=== PATIENT | male | born 1970 | race Caucasian/White ===

== ENCOUNTER 2024-06-14 09:48 | Inpatient (IN) | payer BC ==
[2024-06-14] VITALS (7 sets, daily range): BP systolic 132–145; BP diastolic 76–78; PULSE 73–82; RESP 18–19; TEMP 98.6–100.9; O2SAT 100
[~2024-06-14] VITALS: Ht 193 cm; Wt 118.8 kg
[2024-06-14] MEDS ORDERED: METFORMIN HCL500 MG PO (10:25)
[2024-06-14 10:43] LABS: BASOPHILS % 0.5 % (0.0-1.0); EOSINOPHILS % 0.2 % (0.0-6.0); HEMOGLOBIN 14.6 g/dL (14.0-18.0); LYMPHOCYTES # (AUTO) 0.8 (1.0-3.2); LYMPHOCYTES % 12.2 % (18.0-39.1); MEAN CORPUSCULAR HEMOGLOBIN 30.7 pg (28-32); MEAN CORPUSCULAR HGB CONC 33.2 g/dL (31-35); MEAN CORPUSCULAR VOLUME 92.4 fL (81-99); MONOCYTES # (AUTO) 0.6 (0.2-0.8); MONOCYTES % 9.9 % (4.4-11.3); NEUTROPHILS # (AUTO) 4.9 (2.1-6.9); NEUTROPHILS % 76.9 % (38.7-80.0); PLATELET COUNT 233 x10e3/uL (140-360); RED BLOOD COUNT 4.76 x10e6/uL (4.3-5.7); WHITE BLOOD COUNT 6.38 x10e3/uL (4.8-10.8)
[2024-06-14] MEDS: SODIUM CHLORIDE 0.9% 1000ML 1,000 ML IV STA (10:56)
[2024-06-14 10:58] LABS: INR 1.07; PROTHROMBIN TIME 14.5 seconds (11.9-14.5)
[2024-06-14 10:59] LABS: PARTIAL THROMBOPLASTIN TIME 26.2 seconds (23.8-35.5)
[2024-06-14 11:10] LABS: ALBUMIN 3.8 g/dL (3.5-5.0); ALBUMIN/GLOBULIN RATIO 1.1 (0.8-2.0); ANION GAP 16.8 mmol/L (8-16); BILIRUBIN,TOTAL 0.7 mg/dL (0.2-1.2); CALCIUM 9.7 mg/dL (8.4-10.2); CREATININE, SERUM 0.95 mg/dL (0.72-1.25); MAGNESIUM 1.9 MG/DL (1.3-2.1); POTASSIUM 3.8 mmol/L (3.5-5.1); TOTAL PROTEIN 7.4 g/dL (6.5-8.1)
[2024-06-14 11:15] LABS: TROPONIN I 0.006 ng/mL (0-0.300)
[2024-06-14] MEDS ORDERED: DEXTROSE 50% SYRINGE 50 ML IV PRN (11:15)
[2024-06-14] MEDS ORDERED: ONDANSETRON HCL INJ 2MG/ML 2ML 2 MG/ML VIAL IV PRN (11:15)
[2024-06-14] MEDS ORDERED: Morphine 4mg INJECTION 4 MG/ML INJ IV PRN (11:15)
[2024-06-14] MEDS: INSULIN LISPRO 100 UNIT/1 ML 3ML VIAL SQ SCH (11:30)
[2024-06-14] MEDS ORDERED: COLLAGENASE 5 GM TUBE TOP PRN (14:30)
[2024-06-14] MEDS: SODIUM CHLORIDE 0.9% 1000ML 1,000 ML IV SCH (15:57)
[2024-06-14] MEDS: VANCOMYCIN 1.25GM/250 ML (PEG) 250 ML IV ONE (15:58)
[2024-06-14 17:15] LABS: TROPONIN I 0.005 ng/mL (0-0.300)
[2024-06-14] MEDS: ZOLPIDEM TARTRATE 10 MG TAB PO PRN (21:31)
[2024-06-15] VITALS: BP 122/76; PULSE 66; RESP 18; TEMP 98.6; O2SAT 97
[2024-06-15 04:00] VITALS: BP 125/76; PULSE 72; RESP 18; TEMP 98.1; O2SAT 100
[2024-06-15 05:28] LABS: BASOPHILS % 0.7 % (0.0-1.0); EOSINOPHILS # (AUTO) 0.1 (0.0-0.4); EOSINOPHILS % 1.4 % (0.0-6.0); HEMOGLOBIN 12.9 g/dL (14.0-18.0); LYMPHOCYTES # (AUTO) 1.7 (1.0-3.2); MEAN CORPUSCULAR HEMOGLOBIN 30.4 pg (28-32); MEAN CORPUSCULAR HGB CONC 33.1 g/dL (31-35); MONOCYTES # (AUTO) 0.9 (0.2-0.8); MONOCYTES % 15.5 % (4.4-11.3); NEUTROPHILS # (AUTO) 2.9 (2.1-6.9); NEUTROPHILS % 52.2 % (38.7-80.0); PLATELET COUNT 209 x10e3/uL (140-360); RED BLOOD COUNT 4.24 x10e6/uL (4.3-5.7); RED CELL DISTRIBUTION WIDTH 12.1 % (11.7-14.4); WHITE BLOOD COUNT 5.54 x10e3/uL (4.8-10.8)
[2024-06-15 06:04] LABS: ALBUMIN 3.2 g/dL (3.5-5.0); ALBUMIN/GLOBULIN RATIO 1.1 (0.8-2.0); ANION GAP 14.9 mmol/L (8-16); BILIRUBIN,TOTAL 0.6 mg/dL (0.2-1.2); CALCIUM 8.9 mg/dL (8.4-10.2); CREATININE, SERUM 0.82 mg/dL (0.72-1.25); POTASSIUM 3.9 mmol/L (3.5-5.1); TOTAL PROTEIN 6.2 g/dL (6.5-8.1)
[2024-06-15 06:34] LABS: TROPONIN I 0.008 ng/mL (0-0.300)
[2024-06-15 07:57] VITALS: BP 127/76; PULSE 73; TEMP 98.2; O2SAT 99
[2024-06-15] MEDS ORDERED: BETAMETHASONE DISODIUM PHOS 6 MG/ML VIAL IM ONE (08:00)
[2024-06-15] MEDS ORDERED: BUPIVACAINE HCL 0.5% INJ 30 ML VIAL INJ ONE (08:00)
[2024-06-15] MEDS ORDERED: LIDOCAINE HCL 1% 30ML-PF VIAL INJ ONE (08:00)
[2024-06-15] MEDS: MUPIROCIN 2% OINT 22 GM TUBE TOP SCH (08:53)
[2024-06-15] MEDS ORDERED: HYDROCODONE/APAP 10MG-325MG TAB PO PRN (09:00)
[2024-06-15] MEDS: GLIPIZIDE 5 MG TAB ER PO SCH (09:29)
[2024-06-15] MEDS: SENNA-S TABLET PO SCH (09:29)
[2024-06-15 12:10] VITALS: BP 139/77; PULSE 65; RESP 18; TEMP 97.6; O2SAT 100
[2024-06-15] MEDS: ENOXAPARIN SOD INJ 40 MG/0.4 ML SYR SC SCH (15:47)
[2024-06-15] MEDS: METFORMIN HCL 500 MG TAB PO SCH (15:47)
[2024-06-15 17:03] VITALS: BP 125/86; PULSE 97; RESP 18; TEMP 97.7; O2SAT 100
[2024-06-15 20:00] VITALS: BP 126/84; PULSE 64; RESP 19; TEMP 97.5; O2SAT 100
[2024-06-16 00:47] VITALS: BP 129/78; PULSE 65; RESP 16; TEMP 97.9; O2SAT 98
[2024-06-16 05:35] VITALS: BP 119/61; PULSE 61; RESP 19; TEMP 98.1; O2SAT 100
[2024-06-16 05:36] LABS: BASOPHILS % 0.8 % (0.0-1.0); EOSINOPHILS # (AUTO) 0.1 (0.0-0.4); EOSINOPHILS % 2.3 % (0.0-6.0); HEMATOCRIT 36.7 % (38.2-49.6); HEMOGLOBIN 12.7 g/dL (14.0-18.0); LYMPHOCYTES # (AUTO) 1.7 (1.0-3.2); LYMPHOCYTES % 33.3 % (18.0-39.1); MEAN CORPUSCULAR HEMOGLOBIN 30.2 pg (28-32); MEAN CORPUSCULAR HGB CONC 34.6 g/dL (31-35); MEAN CORPUSCULAR VOLUME 87.4 fL (81-99); MONOCYTES # (AUTO) 0.6 (0.2-0.8); MONOCYTES % 11.3 % (4.4-11.3); NEUTROPHILS # (AUTO) 2.7 (2.1-6.9); NEUTROPHILS % 52.1 % (38.7-80.0); PLATELET COUNT 237 x10e3/uL (140-360); RED CELL DISTRIBUTION WIDTH 12.2 % (11.7-14.4); WHITE BLOOD COUNT 5.13 x10e3/uL (4.8-10.8)
[2024-06-16 06:03] LABS: ANION GAP 14.9 mmol/L (8-16); CALCIUM 9.1 mg/dL (8.4-10.2); CREATININE, SERUM 0.76 mg/dL (0.72-1.25); POTASSIUM 3.9 mmol/L (3.5-5.1)
[2024-06-16 08:00] VITALS: BP 134/78; PULSE 67; RESP 18; TEMP 97.6; O2SAT 98
[2024-06-16 09:00] VITALS: BP 134/78; PULSE 67; RESP 18; TEMP 97.6; O2SAT 98
[2024-06-16 12:00] VITALS: BP 130/72; PULSE 63; RESP 18; TEMP 97.8; O2SAT 99
== END 2024-06-16 14:15 | disposition home or self-care (01) | DRG 629 ==
LOC: ER 09:56 → ERHOLD 11:14 → MED/SURG2 11:55
PROVIDERS: ADMIT Internal Medicine; ATTEND Internal Medicine
PROC: 0QBN0ZX Excision of Right Metatarsal, Open Approach, Diagnostic (ICD-10-PCS; principal; 2024-06-15)
DX: E11.621 Type 2 diabetes mellitus with foot ulcer (principal); L03.115 Cellulitis of right lower limb; Z16.12 Extended spectrum beta lactamase (ESBL) resistance; Z16.24 Resistance to multiple antibiotics; L97.516 Non-pressure chronic ulcer of other part of right foot with bone involvement without evidence of necrosis; E11.69 Type 2 diabetes mellitus with other specified complication; M86.9 Osteomyelitis, unspecified; B96.20 Unspecified Escherichia coli [E. coli] as the cause of diseases classified elsewhere; B96.4 Proteus (mirabilis) (morganii) as the cause of diseases classified elsewhere; E11.40 Type 2 diabetes mellitus with diabetic neuropathy, unspecified; E66.9 Obesity, unspecified; Z68.31 Body mass index [BMI] 31.0-31.9, adult; Z79.84 Long term (current) use of oral hypoglycemic drugs
CPT/HCPCS: 36415; 71045; 80048; 80053; 82550; 82948; 83036; 83735; 84484; 85025; 85610; 85651; 85730; 87040; 87071; 87075; 87186; 87205; 93005; 93971; 99252; 99284; J1650; J2003; J2543; J7030

== ENCOUNTER → 2024-06-18 | Outpatient (REF) | payer BC ==
[~2024-06-18] MED LIST: METFORMIN HCL500 MG PO
== END ==
LOC: DX 11:35
PROVIDERS: ATTEND Internal Medicine Infectious Disease
DX: M86.271 Subacute osteomyelitis, right ankle and foot (principal)
CPT/HCPCS: 36569; 71045